=== PATIENT | female | born 1960 | race Caucasian/White ===

== ENCOUNTER 2018-09-28 13:48 | Inpatient (IN) ==
[2018-09-28] MEDS ORDERED: 0.9 % Sodium Chloride 1,000 ML IVC ONE (14:04)
--- NOTE | 2018-09-28 14:10 | Emergency Department Note ---
Disposition Clinical Impression: Pancreatitis, Renal stone Disposition: Admitted As Inpatient Condition: Good General Adult HPI - General Chief complaint: ED Abdominal Pain Stated complaint: abd pain-sent from Urology Time Seen by Provider: 09/28/18 13:53 Source: patient Limitations: no limitations - History of Present Illness Pain Scale: 5 - Related Data Home Medications Medication Instructions Recorded Confirmed RX: Aspirin 81 mg PO DAILY 06/12/18 09/29/18 RX: Ergocalciferol (VITAMIN D2) 2,000 unit PO DAILY 06/12/18 09/29/18 [Vitamin D2] RX: Escitalopram [Lexapro] 10 mg PO DAILY 06/12/18 09/29/18 RX: Esomeprazole Magnesium [Nexium] 20 mg PO DAILY 06/12/18 09/29/18 RX: Fenofibrate Nanocrystallized 160 mg PO DAILY 06/12/18 09/29/18 [Triglide] RX: Gabapentin [Neurontin] 800 mg PO HS 06/12/18 09/29/18 RX: Metformin HCl [Fortamet] 1,000 mg PO BID 06/12/18 09/29/18 RX: Metoprolol [Lopressor] 25 mg PO BID 06/12/18 09/29/18 RX: Tizanidine HCl [Zanaflex] 4 mg PO HS 06/12/18 09/29/18 RX: Topiramate 50 mg PO HS 06/12/18 09/29/18 RX: Tramadol HCl [Ultram] 50 mg PO HS PRN 06/12/18 09/29/18 Neurx-Tf 1 tab PO DAILY 09/29/18 09/29/18 Previous Rx's Medication Instructions Recorded Ciprofloxacin [Cipro] 500 mg PO BID 3 Days #6 tablet 09/29/18 Oxycodone HCl/Acetaminophen 1 each PO Q4-6H PRN 2 Days #10 09/29/18 [Percocet 5-325 mg Tablet] tablet RX: Oxybutynin [Ditropan] 5 mg PO TID PRN #20 tablet 09/29/18 Allergies Allergy/AdvReac Type Severity Reaction Status Date / Time Penicillins Allergy Hives Verified 09/29/18 10:39 Cortisone AdvReac Severe See Verified 09/29/18 10:39 Comments prednisone AdvReac See Verified 09/29/18 10:39 Comments Past Medical History - Past Medical History Medical history: Reports: coronary artery disease, diabetes, hyperlipidemia, hypertension, kidney stones, myocardial infarction Psychiatric history: Reports: anxiety, depression - Social History Smoking Status: Never smoker Smokeless Tobacco Status: No Alcohol use: Reports: none Drug use: Reports: none Physical Exam - General Limitations: no limitations General appearance: alert Course Vital Signs Temperature 98.6 F 09/28/18 13:55 Pulse Rate 73 09/28/18 13:55 Respiratory Rate 18 09/28/18 13:55 Blood Pressure 123/78 09/28/18 13:55 O2 Sat by Pulse Oximetry 98 09/28/18 13:55 Temperature 98.4 F 09/29/18 15:00 Pulse Rate 73 09/29/18 15:00 Respiratory Rate 16 09/29/18 15:00 Blood Pressure 153/71 09/29/18 15:00 O2 Sat by Pulse Oximetry 95 09/29/18 15:00 Oxygen Delivery Oxygen Delivery Room Air Medical Decision Making - Lab Data Result diagrams: 09/28/18 14:04 09/28/18 14:04 Lab Results 09/28/18 09/28/18 09/28/18 Range/Units 14:04 14:04 14:04 WBC 14.2 H (4.3-11.1) K/mcL RBC 3.41 L (3.82-4.97) M/mcL Hgb 10.2 L (11.5-15.4) g/dL Hct 31.3 L (35.3-44.9) % MCV 91.8 (83.0-100.0) fL MCH 29.9 (28.0-33.3) pg MCHC 32.6 (31.6-35.5) g/dL RDW 14.0 (11.5-14.5) % Plt Count 682 H (140-400) K/mcL MPV 10.0 (9.4-12.4) fL Immature Gran % 0.6 (0-4) % Seg Neutrophils % 69.0 % Lymphocytes % 18.6 % Monocytes % 10.0 % Eosinophils % 1.2 % Basophils % 0.6 % Neutrophils # 9.8 H (1.6-8.9) K/mcL Lymphocytes # 2.6 (0.6-4.6) K/mcL Monocytes # 1.4 H (0.0-1.3) K/mcL Eosinophils # 0.2 (0.0-0.6) K/mcL Basophils # 0.1 (0.0-0.2) K/mcL PT 13.5 H (9.4-12.1) Seconds INR 1.2 APTT 35.4 (26.0-36.0) Seconds Sodium 139 (136-145) mEq/L Potassium 3.5 (3.5-5.1) mEq/L Chloride 105 (98-107) mEq/L Carbon Dioxide 21 L (23-29) mEq/L BUN 12 (8-23) mg/dL Creatinine 1.03 (0.60-1.20) mg/dL Est GFR ( Amer) > 60 (> 60) Est GFR (Non-Af Amer) 55 L (> 60) BUN/Creatinine Ratio 12 (6-26) Glucose 191 H (70-105) mg/dL Calculated Osmolality 293 (280-300) Lactic Acid (0.5-2.2) mmol/L Calcium 11.2 H (8.6-10.3) mg/dL Total Bilirubin 0.6 (0.3-1.0) mg/dL Direct Bilirubin 0.1 (0.0-0.2) mg/dL Indirect Bilirubin 0.5 (0.0-1.2) mg/dL AST 17 (13-39) Units/L ALT 25 (7-52) Units/L Alkaline Phosphatase 47 (34-104) Units/L Troponin I < 0.03 (< 0.04) ng/mL Serum Total Protein 7.6 (6.4-8.9) g/dL Albumin 4.0 (3.5-5.7) g/dL Globulin 3.6 H (2.4-3.5) g/dL Albumin/Globulin Ratio 1.1 (1.1-2.2) Lipase 11 (11-82) Units/L 09/28/18 Range/Units 14:10 WBC (4.3-11.1) K/mcL RBC (3.82-4.97) M/mcL Hgb (11.5-15.4) g/dL Hct (35.3-44.9) % MCV (83.0-100.0) fL MCH (28.0-33.3) pg MCHC (31.6-35.5) g/dL RDW (11.5-14.5) % Plt Count (140-400) K/mcL MPV (9.4-12.4) fL Immature Gran % (0-4) % Seg Neutrophils % % Lymphocytes % % Monocytes % % Eosinophils % % Basophils % % Neutrophils # (1.6-8.9) K/mcL Lymphocytes # (0.6-4.6) K/mcL Monocytes # (0.0-1.3) K/mcL Eosinophils # (0.0-0.6) K/mcL Basophils # (0.0-0.2) K/mcL PT (9.4-12.1) Seconds INR APTT (26.0-36.0) Seconds Sodium (136-145) mEq/L Potassium (3.5-5.1) mEq/L Chloride (98-107) mEq/L Carbon Dioxide (23-29) mEq/L BUN (8-23) mg/dL Creatinine (0.60-1.20) mg/dL Est GFR ( Amer) (> 60) Est GFR (Non-Af Amer) (> 60) BUN/Creatinine Ratio (6-26) Glucose (70-105) mg/dL Calculated Osmolality (280-300) Lactic Acid 1.6 (0.5-2.2) mmol/L Calcium (8.6-10.3) mg/dL Total Bilirubin (0.3-1.0) mg/dL Direct Bilirubin (0.0-0.2) mg/dL Indirect Bilirubin (0.0-1.2) mg/dL AST (13-39) Units/L ALT (7-52) Units/L Alkaline Phosphatase (34-104) Units/L Troponin I (< 0.04) ng/mL Serum Total Protein (6.4-8.9) g/dL Albumin (3.5-5.7) g/dL Globulin (2.4-3.5) g/dL Albumin/Globulin Ratio (1.1-2.2) Lipase (11-82) Units/L Attestation Statement - Attestation Attestation: I examined this patient and my medical decision-making was reviewed with the Resident Physician. I agree with the documented findings, disposition and treatment plan as described except to the extent set forth below. [id number] time provided Patient with left flank pain sent from urology for ureterolithiasis. Patient appears mildly uncomfortable. She was evaluated in conjunction with the resident physician Dr. Damon
--- NOTE | 2018-09-28 14:51 | Emergency Department Note ---
Disposition Clinical Impression: Renal stone Pancreatitis Qualifiers: Chronicity: acute Pancreatitis type: unspecified pancreatitis type Acute pancreatitis complication: unspecified Qualified Code(s): K85.90 - Acute pa ncreatitis without necrosis or infection, unspecified Disposition: Admitted As Inpatient Condition: Good Referrals: Abiel Ragsdale DO [Primary Care Provider] - Forms: ED Satisfaction Letter, Work/School Release Time of Disposition: 15:03 General Adult HPI - General Chief complaint: ED Abdominal Pain Stated complaint: abd pain-sent from Urology Time Seen by Provider: 09/28/18 13:53 Source: patient Limitations: no limitations Nursing Notes Reviewed: Yes Vital Signs Reviewed: Yes - History of Present Illness HPI Narrative: Female patient presenting to emergency department being sent from our urology office for admission secondary to a large renal stone. Noted to be [address] She was subsequently also found to have pancreatitis. No history of pancreatitis or kidney stones previously. Patient complains of some nausea with left flank pain this been going on for around 2 weeks. Denies any dysuria. Denies any actual vomiting. Does report some diarrhea associated with this as well. She has had CABG as well as. Denies any chest pain or shortness of breath. Pain Scale: 5 - Related Data Home Medications Medication Instructions Recorded Confirmed Aspirin 81 mg PO DAILY 06/12/18 06/12/18 Ergocalciferol (VITAMIN D2) 2,000 unit PO DAILY 06/12/18 06/12/18 [Vitamin D2] Escitalopram [Lexapro] 10 mg PO DAILY 06/12/18 06/12/18 Esomeprazole Magnesium [Nexium] 20 mg PO DAILY 06/12/18 06/12/18 Fenofibrate Nanocrystallized 160 mg PO DAILY 06/12/18 06/12/18 [Triglide] Gabapentin [Neurontin] 1,600 mg PO HS 06/12/18 06/12/18 Gabapentin [Neurontin] 800 mg PO DAILY 06/12/18 06/12/18 Metformin HCl [Fortamet] 1,000 mg PO BID 06/12/18 06/12/18 Metoprolol [Lopressor] 25 mg PO BID 06/12/18 06/12/18 Pravastatin Sodium [Pravachol] 80 mg PO HS 06/12/18 06/12/18 Tizanidine HCl [Zanaflex] 4 mg PO HS 06/12/18 06/12/18 Topiramate 50 mg PO HS 06/12/18 06/12/18 Tramadol HCl [Ultram] 50 mg PO HS PRN 06/12/18 06/12/18 Previous Rx's Medication Instructions Recorded Tamsulosin HCl [Flomax] 0.4 mg PO DAILY #7 cap.er.24h 06/12/18 Allergies Allergy/AdvReac Type Severity Reaction Status Date / Time Cortisone Allergy See Verified 06/12/18 10:46 Comments Penicillins Allergy See Verified 06/12/18 10:46 Comments prednisone Allergy See Verified 06/12/18 10:46 Comments All systems ED: reviewed and negative except as stated. Review of Systems: As Per HPI Constitutional: Denies: fever ENT ED: Denies: congestion Cardiovascular: Denies: chest pain, palpitations, syncope Respiratory: Denies: cough, dyspnea Gastrointestinal: Reports: nausea, diarrhea. Denies: abdominal pain, vomiting, hematemesis, melena, hematochezia Genitourinary: Denies: urgency, dysuria, frequency, hematuria Musculoskeletal: Reports: back pain Integumentary: Denies: rash Past Medical History - Past Medical History Attestation: Yes The following information was validated with the patient. Source: patient Medical history: Reports: coronary artery disease, diabetes, hyperlipidemia, hypertension, kidney stones, myocardial infarction Psychiatric history: Reports: anxiety, depression - Social History Smoking Status: Never smoker Smokeless Tobacco Status: No Alcohol use: Reports: none Drug use: Reports: none Physical Exam - General Limitations: no limitations General appearance: alert, in no apparent distress - Head Head exam: atraumatic, normocephalic, normal inspection - Eye Eye exam: Present: normal appearance, PERRL, EOMI - ENT ENT exam: normal exam, normal oropharynx, mucous membranes moist - Neck Neck exam: Present: normal inspection, full ROM, trachea midline - Chest Chest inspection: Present: normal inspection, symmetric chest wall rise - Respiratory Respiratory exam: Present: normal lung sounds bilaterally. Absent: respiratory distress, accessory muscle use - Cardiovascular Cardiovascular exam: Present: regular rate, normal rhythm, normal heart sounds - Abdominal Exam Abdominal exam: Present: soft, Non-Tender. Absent: tenderness, distention, guarding, rebound, rigidity, organomegaly - Extremities Exam Extremities exam: Present: normal inspection, full ROM, normal capillary refill. Absent: tenderness, pedal edema - Back Exam Back exam: Present: CVA tenderness (L). Absent: CVA tenderness (R) - Neurological Exam Neurological exam: Present: alert, oriented X3 - Psychiatric Psychiatric exam: Present: normal affect, normal mood - Skin Skin exam: Present: warm, dry, intact, normal color Course Course Narrative: Female patient with left flank pain. States is been present for around 2 weeks also complaining of nausea but no vomiting. Does report intermittent diarrhea however. She is a diabetic with hypercholesterol. No history of renal stones or pancreatitis before. She is refusing any type of pain medication or antibiotic at this time. We will admit patient to the hospital for renal stone that is not able to be passed as well as her pancreatitis. Patient's lipase is not elevated. We did speak with urology. We will admit patient to the hospital at this time. - Consultations Consultation #1: Dr. Fiore except patient stable condition Time: 15:42 Vital Signs Temperature 98.6 F 09/28/18 13:55 Pulse Rate 73 09/28/18 13:55 Respiratory Rate 18 09/28/18 13:55 Blood Pressure 123/78 09/28/18 13:55 O2 Sat by Pulse Oximetry 98 09/28/18 13:55 Temperature 98.6 F 09/28/18 13:55 Pulse Rate 70 09/28/18 14:08 Respiratory Rate 13 09/28/18 14:08 Blood Pressure 132/64 09/28/18 14:08 O2 Sat by Pulse Oximetry 98 09/28/18 14:08 Oxygen Delivery Oxygen Delivery Room Air Medical Decision Making - Medical Records Medical records reviewed: Yes I reviewed the patient's medical records. - Lab Data Lab results reviewed: Yes I reviewed the patient's lab results. Result diagrams: 09/28/18 14:04 09/28/18 14:04 Lab Results 09/28/18 09/28/18 09/28/18 Range/Units 14:04 14:04 14:04 WBC 14.2 H (4.3-11.1) K/mcL RBC 3.41 L (3.82-4.97) M/mcL Hgb 10.2 L (11.5-15.4) g/dL Hct 31.3 L (35.3-44.9) % MCV 91.8 (83.0-100.0) fL MCH 29.9 (28.0-33.3) pg MCHC 32.6 (31.6-35.5) g/dL RDW 14.0 (11.5-14.5) % Plt Count 682 H (140-400) K/mcL MPV 10.0 (9.4-12.4) fL Immature Gran % 0.6 (0-4) % Seg Neutrophils % 69.0 % Lymphocytes % 18.6 % Monocytes % 10.0 % Eosinophils % 1.2 % Basophils % 0.6 % Neutrophils # 9.8 H (1.6-8.9) K/mcL Lymphocytes # 2.6 (0.6-4.6) K/mcL Monocytes # 1.4 H (0.0-1.3) K/mcL Eosinophils # 0.2 (0.0-0.6) K/mcL Basophils # 0.1 (0.0-0.2) K/mcL PT 13.5 H (9.4-12.1) Seconds INR 1.2 APTT 35.4 (26.0-36.0) Seconds Sodium 139 (136-145) mEq/L Potassium 3.5 (3.5-5.1) mEq/L Chloride 105 (98-107) mEq/L Carbon Dioxide 21 L (23-29) mEq/L BUN 12 (8-23) mg/dL Creatinine 1.03 (0.60-1.20) mg/dL Est GFR ( Amer) > 60 (> 60) Est GFR (Non-Af Amer) 55 L (> 60) BUN/Creatinine Ratio 12 (6-26) Glucose 191 H (70-105) mg/dL Calculated Osmolality 293 (280-300) Lactic Acid (0.5-2.2) mmol/L Calcium 11.2 H (8.6-10.3) mg/dL Total Bilirubin 0.6 (0.3-1.0) mg/dL Direct Bilirubin 0.1 (0.0-0.2) mg/dL Indirect Bilirubin 0.5 (0.0-1.2) mg/dL AST 17 (13-39) Units/L ALT 25 (7-52) Units/L Alkaline Phosphatase 47 (34-104) Units/L Troponin I < 0.03 (< 0.04) ng/mL Serum Total Protein 7.6 (6.4-8.9) g/dL Albumin 4.0 (3.5-5.7) g/dL Globulin 3.6 H (2.4-3.5) g/dL Albumin/Globulin Ratio 1.1 (1.1-2.2) Lipase 11 (11-82) Units/L // Range/Units 14:10 WBC (4.3-11.1) K/mcL RBC (3.82-4.97) M/mcL Hgb (11.5-15.4) g/dL Hct (35.3-44.9) % MCV (83.0-100.0) fL MCH (28.0-33.3) pg MCHC (31.6-35.5) g/dL RDW (11.5-14.5) % Plt Count (140-400) K/mcL MPV (9.4-12.4) fL Immature Gran % (0-4) % Seg Neutrophils % % Lymphocytes % % Monocytes % % Eosinophils % % Basophils % % Neutrophils # (1.6-8.9) K/mcL Lymphocytes # (0.6-4.6) K/mcL Monocytes # (0.0-1.3) K/mcL Eosinophils # (0.0-0.6) K/mcL Basophils # (0.0-0.2) K/mcL PT (9.4-12.1) Seconds INR APTT (26.0-36.0) Seconds Sodium (136-145) mEq/L Potassium (3.5-5.1) mEq/L Chloride (98-107) mEq/L Carbon Dioxide (23-29) mEq/L BUN (8-23) mg/dL Creatinine (0.60-1.20) mg/dL Est GFR ( Amer) (> 60) Est GFR (Non-Af Amer) (> 60) BUN/Creatinine Ratio (6-26) Glucose (70-105) mg/dL Calculated Osmolality (280-300) Lactic Acid 1.6 (0.5-2.2) mmol/L Calcium (8.6-10.3) mg/dL Total Bilirubin (0.3-1.0) mg/dL Direct Bilirubin (0.0-0.2) mg/dL Indirect Bilirubin (0.0-1.2) mg/dL AST (13-39) Units/L ALT (7-52) Units/L Alkaline Phosphatase (34-104) Units/L Troponin I (< 0.04) ng/mL Serum Total Protein (6.4-8.9) g/dL Albumin (3.5-5.7) g/dL Globulin (2.4-3.5) g/dL Albumin/Globulin Ratio (1.1-2.2) Lipase (11-82) Units/L
[2018-09-28 14:53] LABS: Basophils # 0.1 K/mcL (0.0-0.2); Basophils % 0.6 %; Eosinophils # 0.2 K/mcL (0.0-0.6); Eosinophils % 1.2 %; Hematocrit 31.3 % (35.3-44.9); Hemoglobin 10.2 g/dL (11.5-15.4); Immature Granulocytes % 0.6 % (0-4); Lymphocytes # 2.6 K/mcL (0.6-4.6); Lymphocytes % 18.6 %; Mean Corpuscular HGB Conc 32.6 g/dL (31.6-35.5); Mean Corpuscular Hemoglobin 29.9 pg (28.0-33.3); Mean Corpuscular Volume 91.8 fL (83.0-100.0); Monocytes # 1.4 K/mcL (0.0-1.3); Neutrophils # 9.8 K/mcL (1.6-8.9); Platelet Count 682 K/mcL (140-400); Red Blood Count 3.41 M/mcL (3.82-4.97)
[2018-09-28 15:03] LABS: Troponin I < 0.03 ng/mL (< 0.04)
[2018-09-28 15:08] LABS: INR 1.2; Prothrombin Time 13.5 Seconds (9.4-12.1)
[2018-09-28 15:11] LABS: Activated Partial Thrombo Time 35.4 Seconds (26.0-36.0)
[2018-09-28 15:17] LABS: Alanine Aminotransferase 25 Units/L (7-52); Albumin/Globulin Ratio 1.1 (1.1-2.2); Alkaline Phosphatase 47 Units/L (34-104); Aspartate Amino Transferase 17 Units/L (13-39); BUN/Creatinine Ratio 12 (6-26); Bilirubin,Direct 0.1 mg/dL (0.0-0.2); Bilirubin,Indirect 0.5 mg/dL (0.0-1.2); Bilirubin,Total 0.6 mg/dL (0.3-1.0); Blood Urea Nitrogen 12 mg/dL (8-23); Calcium 11.2 mg/dL (8.6-10.3); Carbon Dioxide 21 mEq/L (23-29); Chloride 105 mEq/L (98-107); Globulin 3.6 g/dL (2.4-3.5); Glucose 191 mg/dL (70-105); Lipase 11 Units/L (11-82); Osmolality,Calculated 293 (280-300); Potassium 3.5 mEq/L (3.5-5.1); Sodium 139 mEq/L (136-145); Total Protein 7.6 g/dL (6.4-8.9); eGFR For Non-African Americans 55 (> 60)
--- NOTE | 2018-09-28 17:01 | Urology - Consult Note ---
Date of Encounter: 09/29/18 Time of Encounter: 16:58 - Assessment and Plan (1) Hydronephrosis Current Visit: Yes Status: Acute Assessment and plan: Secondary to a 12 mm left UPJ stone. Plan: Please make patient nothing by mouth after midnight. Anticipate urinary diversion with left double-J ureteral stent placement under anesthesia late tomorrow morning. Qualifiers: Hydronephrosis type: with renal calculous obstruction Qualified Code(s): N13.2 - Hydronephrosis with renal and ureteral calculous obstruction (2) Renal stone Current Visit: Yes Status: Acute Assessment and plan: In addition to be obstructing 5 mm stone the patient has at the left UPJ there are additional small stones in the lower pole the left kidney and a fairly sizable stone in the right kidney. Plan: Nothing by mouth after midnight. Urinary diversion with stent placement tomorrow on an urgent basis. Follow-up for definitive stone management with my partner Dr. Mcdaniels who is her established urologist Urology CN:[facility] Consult date: 09/28/18 Reason for consult Urology: Hydronephrosis History of present illness: 58-year-old lady well known to our service. She is a patient of my partner Dr. Mcdainels. The patient underwent a recent left lithotripsy which failed to eradicate her left renal pelvic stone. She was recommended ureteroscopy with laser lithotripsy, but elected to not schedule this definitive procedure. She now presents the emergency department with an obstructing 12 mm stone in the l eft UPJ with hydronephrosis and significant pain. I discussed the case in detail with the emergency department attending. I recommended admission to medicine with a formal consult to our service. I have reviewed her CT images. I have discussed the details of her previous treatment with Dr. Mcdaniels. I have reserved or time for urinary diversion tomorrow morning.. Past Med Surg Social Fam HX - Past Medical History Medical history: coronary artery disease, diabetes, hyperlipidemia, hypertension, kidney stones, myocardial infarction Psychiatric history: anxiety, depression - Past Surgical History Additional surgical history: Left ESWL - Social History Smoking Status: Never smoker Smokeless Tobacco Status: No Alcohol use: none Drug use: none - Family History Father Hx Family Cardiac Disorders: Yes (Heart Dx, HTN) Hx Family Respiratory Disorders: Yes (COPD) Hx Family Endocrine Disorder: Yes (DM) Mother Hx Family Cardiac Disorders: Yes (HTN) Medications and Allergies RX: Aspirin 81 mg PO DAILY 06/12/18 [History] RX: Ergocalciferol (VITAMIN D2) [Vitamin D2] 2,000 unit PO DAILY 06/12/18 [History] RX: Escitalopram [Lexapro] 10 mg PO DAILY 06/12/18 [History] RX: Esomeprazole Magnesium [Nexium] 20 mg PO DAILY 06/12/18 [History] RX: Fenofibrate Nanocrystallized [Triglide] 160 mg PO DAILY 06/12/18 [History] RX: Gabapentin [Neurontin] 800 mg PO HS 06/12/18 [History] RX: Metformin HCl [Fortamet] 1,000 mg PO BID 06/12/18 [History] RX: Metoprolol [Lopressor] 25 mg PO BID 06/12/18 [History] RX: Tizanidine HCl [Zanaflex] 4 mg PO HS 06/12/18 [History] RX: Topiramate 50 mg PO HS 06/12/18 [History] RX: Tramadol HCl [Ultram] 50 mg PO HS PRN 06/12/18 [History] Neurx-Tf 1 tab PO DAILY 09/29/18 [History] Allergy/AdvReac Type Severity Reaction Status Date / Time Penicillins Allergy Hives Verified 09/29/18 10:39 Cortisone AdvReac Severe See Verified 09/29/18 10:39 Comments prednisone AdvReac See Verified 09/29/18 10:39 Comments Review of Systems - Constitutional no chills, no fever(s) - EENT Nose, mouth and throat: no dizziness, no headache(s) - Cardiovascular no chest pain, no diaphoresis - Respiratory no cough, no dyspnea - Gastrointestinal abdominal pain, nausea, no fecal incontinence - Genitourinary Genitourinary: flank pain, no dysuria - Musculoskeletal back pain, no muscle weakness, no numbness - Integumentary no lesions, no rash, no swelling - Neurological no confusion, no sensory deficit - Psychiatric no anxiety, no confusion - Hematologic/Lymphatic no easy bleeding - Allergic/Immunologic no throat swelling, no wheezing Exam Initial Vital Signs Temp Pulse Resp BP Pulse Ox 98.6 F 73 18 123/78 98 09/28/18 13:55 09/28/18 13:55 09/28/18 13:55 09/28/18 13:55 09/28/18 13:55 - General physical appearance Present: well developed, well nourished - Eyes Present: normal ocular movement - ENT Present: normal mucosa, no hearing loss - Neck Present: trachea midline - Respiratory Present: normal respiratory effort - Abdomen Abdomen: Present: soft, non tender. Absent: distended - Integumentary Present: no rash, no growths, no abnormal pigmentation - Neurologic Present: normal coordination - Musculoskeletal Present: normal gait Urology Results - Labs 09/28/18 14:04 09/28/18 14:04 Abnormal lab results WBC 14.2 K/mcL (4.3-11.1) H 09/28/18 14:04 RBC 3.41 M/mcL (3.82-4.97) L 09/28/18 14:04 Hgb 10.2 g/dL (11.5-15.4) L 09/28/18 14:04 Hct 31.3 % (35.3-44.9) L 09/28/18 14:04 Plt Count 682 K/mcL (140-400) H 09/28/18 14:04 Neutrophils # 9.8 K/mcL (1.6-8.9) H 09/28/18 14:04 Monocytes # 1.4 K/mcL (0.0-1.3) H 09/28/18 14:04 PT 13.5 Seconds (9.4-12.1) H 09/28/18 14:04 Carbon Dioxide 21 mEq/L (23-29) L 09/28/18 14:04 Est GFR (Non-Af Amer) 55 (> 60) L 09/28/18 14:04 Glucose 191 mg/dL (70-105) H 09/28/18 14:04 Calcium 11.2 mg/dL (8.6-10.3) H 09/28/18 14:04 Globulin 3.6 g/dL (2.4-3.5) H 09/28/18 14:04 Diabetes panel 09/28/18 Range/Units 14:04 Sodium 139 (136-145) mEq/L Potassium 3.5 (3.5-5.1) mEq/L Chloride 105 (98-107) mEq/L Carbon Dioxide 21 L (23-29) mEq/L BUN 12 (8-23) mg/dL Creatinine 1.03 (0.60-1.20) mg/dL Glucose 191 H (70-105) mg/dL Calcium 11.2 H (8.6-10.3) mg/dL AST 17 (13-39) Units/L ALT 25 (7-52) Units/L Alkaline Phosphatase 47 (34-104) Units/L Albumin 4.0 (3.5-5.7) g/dL Calcium panel 09/28/18 Range/Units 14:04 Calcium 11.2 H (8.6-10.3) mg/dL Albumin 4.0 (3.5-5.7) g/dL Pituitary panel 09/28/18 Range/Units 14:04 Sodium 139 (136-145) mEq/L Potassium 3.5 (3.5-5.1) mEq/L Chloride 105 (98-107) mEq/L Carbon Dioxide 21 L (23-29) mEq/L BUN 12 (8-23) mg/dL Creatinine 1.03 (0.60-1.20) mg/dL Glucose 191 H (70-105) mg/dL Calcium 11.2 H (8.6-10.3) mg/dL Adrenal panel 09/28/18 Range/Units 14:04 Sodium 139 (136-145) mEq/L Potassium 3.5 (3.5-5.1) mEq/L Chloride 105 (98-107) mEq/L Carbon Dioxide 21 L (23-29) mEq/L BUN 12 (8-23) mg/dL Creatinine 1.03 (0.60-1.20) mg/dL Glucose 191 H (70-105) mg/dL Calcium 11.2 H (8.6-10.3) mg/dL Total Bilirubin 0.6 (0.3-1.0) mg/dL AST 17 (13-39) Units/L ALT 25 (7-52) Units/L Alkaline Phosphatase 47 (34-104) Units/L Albumin 4.0 (3.5-5.7) g/dL All other labs normal. - Imaging CT scan - abdomen: image reviewed CT scan - pelvis: image reviewed (CT images reviewed and interpreted independently) Consult Discharge Plan - Plan Referrals: Abiel Ragsdale DO [Primary Care Provider] -
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
[2018-09-28] MEDS ORDERED: *HR* Dextrose 50 % in Water (Syg) 50 ML SYRINGE IVP PRN (18:49)
[2018-09-28] MEDS ORDERED: Dextrose Gel 15 GM/37.5 ML TUBE PO PRN ×2 (18:49)
[2018-09-28] MEDS ORDERED: D5% in Water 1,000 ML IVC PRN (18:49)
[2018-09-28] MEDS ORDERED: Naloxone 0.4 MG/ML INJ IVP PRN (18:52)
[2018-09-28] MEDS ORDERED: *HR* OxyCODONE Immed Rel 5 MG TABLET PO PRN ×2 (18:56→18:58)
[2018-09-28] MEDS ORDERED: Ondansetron 4 MG/2 ML VIAL IVP PRN (18:59)
[2018-09-28 19:32] LABS: Estimated Average Glucose 163 mg/dl; Hemoglobin A1C 7.3 %
[2018-09-28] MEDS: 0.9 % Sodium Chloride 1,000 ML IVC SCH (20:11)
[2018-09-28] MEDS: Insulin LISPRO 300 UNITS/3 ML VIAL SQ SCH (21:00)
[2018-09-28] MEDS ORDERED: Insulin LISPRO 300 UNITS/3 ML VIAL SQ SCH (21:00)
[2018-09-29] MEDS: Insulin LISPRO 300 UNITS/3 ML VIAL SQ SCH ×4 (04:56→11:30)
--- NOTE | 2018-09-29 09:16 | Anesthesia Evaluation PreOp ---
Date of Encounter: 09/29/18 Time of Encounter: 09:14 - Past History Planned Operation: Cystoscopy, Bilateral Stent Insertion Cardiac History: CO, HTN, Hyperlipidemia, Cardiac Surgery (CABG x 4 2005), Other (CAD) Pulmonary History: Denies Any Significant HX FRONT DESK PERSON History: Denies Any Significant HX Other Medical History: Renal (stones), Diabetes Type II Anesthesia History: No Prior Anesthetic Complications, Past Anesthesia ([facility]) : No Alcohol Use: none Drug use: none Medications and Allergies Aspirin 81 mg PO DAILY 06/12/18 [History] Ergocalciferol (VITAMIN D2) [Vitamin D2] 2,000 unit PO DAILY 06/12/18 [History] Escitalopram [Lexapro] 10 mg PO DAILY 06/12/18 [History] Esomeprazole Magnesium [Nexium] 20 mg PO DAILY 06/12/18 [History] Fenofibrate Nanocrystallized [Triglide] 160 mg PO DAILY 06/12/18 [History] Gabapentin [Neurontin] 800 mg PO HS 06/12/18 [History] Metformin HCl [Fortamet] 1,000 mg PO BID 06/12/18 [History] Metoprolol [Lopressor] 25 mg PO BID 06/12/18 [History] Tizanidine HCl [Zanaflex] 4 mg PO HS 06/12/18 [History] Topiramate 50 mg PO HS 06/12/18 [History] Tramadol HCl [Ultram] 50 mg PO HS PRN 06/12/18 [History] Neurx-Tf 1 tab PO DAILY 09/29/18 [History] Allergy/AdvReac Type Severity Reaction Status Date / Time Penicillins Allergy Hives Verified 09/29/18 10:39 Cortisone AdvReac Severe See Verified 09/29/18 10:39 Comments prednisone AdvReac See Verified 09/29/18 10:39 Comments - Meds/Allergy Pre-op Review Medications Reviewed: Yes Allergies Reviewed: Yes Beta Blockers on Current Med List: Yes (Will give IV pre-op) Anesthesia Results - Labs 09/28/18 14:04 09/28/18 14:04 Anesthesia Exam O2 Sat Height 1.7 m Height 1.7 m Weight 83.4 kg Weight 83.7 kg Weight 79.832 kg O2 Sat by Pulse Oximetry 97 O2 Sat by Pulse Oximetry 96 O2 Sat by Pulse Oximetry 98 O2 Sat by Pulse Oximetry 97 O2 Sat by Pulse Oximetry 98 O2 Sat by Pulse Oximetry 98 O2 Sat by Pulse Oximetry 98 Vital Signs Temp Pulse Resp BP Pulse Ox 98.6 F 73 18 123/78 98 09/28/18 13:55 09/28/18 13:55 09/28/18 13:55 09/28/18 13:55 09/28/18 13:55 Vital Signs/O2 Sat, Most Current Temp Pulse Resp BP Pulse Ox 98.9 F 74 18 145/72 97 09/29/18 07:20 09/29/18 07:20 09/29/18 07:20 09/29/18 07:20 09/29/18 07:20 NPO (# of Hours): > 8 hrs Pain Scale: 0 Pain Scale Used: Numeric (1 - 10) - HEENT Pupil (Motor): Pupils equal, EOMI Mallampati: II Teeth: Normal Oral Opening: Greater than 3 - FRONT DESK PERSON LOC: Oriented FRONT DESK PERSON Motor: Normal RUE, Normal LUE, Normal RLE, Normal LLE, Normal Face FRONT DESK PERSON Sensory: Normal: RUE, LUE, RLE, LLE, Face - Cardiac Rhythm: Regular Murmur: None JVD: No Carotid Bruit: No - Pulmonary Breath Sounds: bilateral Clear Respiratory Effort: Symmetrical Anesthesia Assess/Plan ASA Score: 2 Level of consciousness: Cooperative Anesthetic Plan: General Autologous Blood: Yes Monitoring Plan: Standard Monitors Recovery Plan: PACU
[2018-09-29] MEDS ORDERED: *HR* Labetalol 20 MG/4 ML SYRINGE IVP PRN ×2 (09:25→12:55)
[2018-09-29] MEDS ORDERED: Ondansetron 4 MG/2 ML VIAL IVP ONE (09:25)
[2018-09-29] MEDS ORDERED: *HR* OxyCODONE Immed Rel 5 MG TABLET PO PRN ×4 (09:25→12:55)
[2018-09-29] MEDS ORDERED: *HR* Promethazine 25 MG/ML VIAL IVP PRN ×2 (09:25→12:55)
[2018-09-29] MEDS ORDERED: *HR* HYDROmorphone (PF) 1 MG/ML SYRINGE IVP PRN ×2 (09:25→12:55)
[2018-09-29] MEDS: 0.9 % Sodium Chloride 1,000 ML IVC SCH (09:30)
[2018-09-29] MEDS ORDERED: *HR* Propofol 200 MG/20 ML VIAL IVP ONE (10:19)
[2018-09-29] MEDS ORDERED: *HR* FentaNYL (PF) 100 MCG/2 ML VIAL ONE (10:20)
[2018-09-29] MEDS ORDERED: Lidocaine -MPF 2% 2 ML VIAL ONE (10:20)
[2018-09-29] MEDS ORDERED: Ondansetron 4 MG/2 ML VIAL ONE (10:20)
[2018-09-29] MEDS ORDERED: *HR* Midazolam HCl 2 MG/2 ML VIAL ONE (10:20)
[2018-09-29] MEDS ORDERED: Dexamethasone 4 MG/ML VIAL ONE (10:20)
[2018-09-29] MEDS ORDERED: Isovue-300 50 ML VIAL ONE (11:59)
--- NOTE | 2018-09-29 12:29 | Operative Note ---
Date of procedure: 09/29/18 Pre-op diagnosis: Left renal calculus Post-op diagnosis: same Procedure: Cystoscopy, left retrograde ureteropyelogram with intraoperative interpretation of radial graphic images in real time by surgeon to facilitate procedure, left double-J stent placement Implants: 6 x 26 left double-J stent Complications: None Anesthesia: GETA Surgeon: Dwaine Austin Was there an events administrative assistant present: No Estimated blood loss (cc): 0 Specimen: none Condition: stable Disposition: PACU Procedure in Detail: The patient brought the operating theater placed on table in supine position. Patient identified by name and administered a general anesthetic. The patient was placed in dorsal lithotomy prepped and draped in a normal sterile fashion. A cystoscope was inserted to the urethral meatus and advanced with bladder under direct visualization. There were no mucosal abnormalities of bladder or urethra. An open-ended catheter was placed the tip of the left ureteral orifice. With gentle injection of contrast a left retrograde ureteral Polygram was performed. Intraoperative interpretation of radial graphic images in real time by surgeon revealed mild dilation of the distal mid and proximal ureter without filling defect until the level of the UPJ where a large high-grade obstruction was noted. Minimal contrast past the obstructing stone. Based on this finding urinary diversion was indicated. Under fluoroscopic guidance a Glidewire was advanced around the stone and into the left renal pelvis. Over the Glidewire a 6 x 26 double J stent was advanced. Was sent was a to be in good position fluoroscopically, the Glidewire was removed. Proximal distal ends of the stent were confirmed in good position fluoroscopically. This ended the operative procedure
--- NOTE | 2018-09-29 12:37 | Urology Progress Note ---
Date of Encounter: 09/29/18 Time of Encounter: 12:36 - Assessment and Plan (1) Hydronephrosis Current Visit: Yes Status: Acute Qualifiers: Hydronephrosis type: with renal calculous obstruction Qualified Code(s): N13.2 - Hydronephrosis with renal and ureteral calculous obstruction (2) Renal stone Current Visit: Yes Status: Acute Assessment and plan: Uncomplicated urinary diversion via left ureteral stent placement in OR. Okay for discharge from urology standpoint. Scripts for ciprofloxacin and oxybutynin sent to pharmacy electronically. Prescription for Percocet printed and placed in patient chart. Thank you for your assistance and medical management of this patient. Objective Initial Vital Signs Temp Pulse Resp BP Pulse Ox 98.6 F 73 18 123/78 98 09/28/18 13:55 09/28/18 13:55 09/28/18 13:55 09/28/18 13:55 09/28/18 13:55 - Labs 09/28/18 14:04 09/28/18 14:04 Diabetes panel 09/28/18 09/28/18 Range/Units 14:04 19:19 Sodium 139 (136-145) mEq/L Potassium 3.5 (3.5-5.1) mEq/L Chloride 105 (98-107) mEq/L Carbon Dioxide 21 L (23-29) mEq/L BUN 12 (8-23) mg/dL Creatinine 1.03 (0.60-1.20) mg/dL Glucose 191 H (70-105) mg/dL Hemoglobin A1c 7.3 H ( - 5.6) % Calcium 11.2 H (8.6-10.3) mg/dL AST 17 (13-39) Units/L ALT 25 (7-52) Units/L Alkaline Phosphatase 47 (34-104) Units/L Albumin 4.0 (3.5-5.7) g/dL Calcium panel 09/28/18 Range/Units 14:04 Calcium 11.2 H (8.6-10.3) mg/dL Albumin 4.0 (3.5-5.7) g/dL Pituitary panel 09/28/18 Range/Units 14:04 Sodium 139 (136-145) mEq/L Potassium 3.5 (3.5-5.1) mEq/L Chloride 105 (98-107) mEq/L Carbon Dioxide 21 L (23-29) mEq/L BUN 12 (8-23) mg/dL Creatinine 1.03 (0.60-1.20) mg/dL Glucose 191 H (70-105) mg/dL Calcium 11.2 H (8.6-10.3) mg/dL Adrenal panel 09/28/18 Range/Units 14:04 Sodium 139 (136-145) mEq/L Potassium 3.5 (3.5-5.1) mEq/L Chloride 105 (98-107) mEq/L Carbon Dioxide 21 L (23-29) mEq/L BUN 12 (8-23) mg/dL Creatinine 1.03 (0.60-1.20) mg/dL Glucose 191 H (70-105) mg/dL Calcium 11.2 H (8.6-10.3) mg/dL Total Bilirubin 0.6 (0.3-1.0) mg/dL AST 17 (13-39) Units/L ALT 25 (7-52) Units/L Alkaline Phosphatase 47 (34-104) Units/L Albumin 4.0 (3.5-5.7) g/dL Consult Discharge Plan - Plan Referrals: Abiel Ragsdale DO [Primary Care Provider] - Prescriptions: Ciprofloxacin [Cipro] 500 mg PO BID 3 Days #6 tablet Oxybutynin [Ditropan] 5 mg PO TID PRN #20 tablet PRN Reason: Bladder/stent irritation Oxycodone HCl/Acetaminophen [Percocet 5-325 mg Tablet] 1 each PO Q4-6H PRN 2 Days #10 tablet PRN Reason: pain
[2018-09-29] MEDS ORDERED: Naloxone 0.4 MG/ML INJ IVP PRN (12:55)
[2018-09-29] MEDS ORDERED: *HR* Dextrose 50 % in Water (Syg) 50 ML SYRINGE IVP PRN (12:55)
[2018-09-29] MEDS ORDERED: D5% in Water 1,000 ML IVC PRN (12:55)
[2018-09-29] MEDS ORDERED: 0.9 % Sodium Chloride 1,000 ML IVC SCH (12:55)
[2018-09-29] MEDS ORDERED: Ondansetron 4 MG/2 ML VIAL IVP PRN (12:55)
[2018-09-29] MEDS ORDERED: Dextrose Gel 15 GM/37.5 ML TUBE PO PRN ×2 (12:55)
[2018-09-29 15:01] VITALS: BP 153/71
--- NOTE | 2018-09-29 15:26 | Anesthesia Evaluation Post Op ---
Date of Encounter: 09/29/18 Time of Encounter: 15:25 - Vital Signs Vital Signs: Vital Signs/O2 Sat, Most Current Temp Pulse Resp BP Pulse Ox 98.4 F 73 16 153/71 95 09/29/18 15:00 09/29/18 15:00 09/29/18 15:00 09/29/18 15:00 09/29/18 15:00 - Lungs Lungs: Clear Ascult./Percussion - Airway Airway: Non-obstructed - Cardiovascular Regular Rate - Pain Pain Scale: 0 Pain Scale used: Numeric (1 - 10) - Nausea Vomiting Nausea Vomiting: Not Present - Hydration Hydration: NPO, Has not voided - Discharge PostOp Status: Transfer Patient to floor
[2018-09-29] MEDS ORDERED: Insulin LISPRO 300 UNITS/3 ML VIAL SQ SCH ×3 (16:30→21:00)
--- NOTE | 2018-09-29 16:44 | Discharge Summary ---
Orders not resulted at time of discharge: Pending orders 09/28/18 16:21 Urinalysis Reflex Cult & Micro [URIN] Stat Date of Encounter: 09/29/18 Time of Encounter: 16:39 - Discharge Diagnosis (1) Hydronephrosis with ureteral calculus Priority: Primary Status: Acute (2) Abnormal CT of the abdomen Priority: Secondary Status: Chronic (3) CAD (coronary artery disease) Priority: Secondary Status: Chronic Qualifiers: Coronary Disease-Associated Artery/Lesion type: unspecified vessel or lesion type [place] vs. transplanted heart: [place] heart Associated angina: without angina Qualified Code(s): I25.10 - Atherosclerotic heart disease of [place] coronary artery without angina pectoris (4) T2DM (type 2 diabetes mellitus) Priority: Secondary Status: Chronic Qualifiers: Diabetes mellitus group home insulin use: without long term care pharmacist use Diabetes mellitus complication status: without complication Qualified Code(s): E11.9 - Type 2 diabetes mellitus without complications Hospital course: Ms. Will is a 58 year old female Discharge discussed with: patient, nurse - Time Spent with Patient Total time spent providing and/or coordinating discharge services: Time spent: Less than 30 minutes - Discharge Medications Prescriptions: New Ciprofloxacin [Cipro] 500 mg PO BID 3 Days #6 tablet Oxybutynin [Ditropan] 5 mg PO TID PRN #20 tablet PRN Reason: Bladder/stent irritation Oxycodone HCl/Acetaminophen [Percocet 5-325 mg Tablet] 1 each PO Q4-6H PRN 2 Days #10 tablet PRN Reason: pain Continue Aspirin 81 mg PO DAILY Ergocalciferol (VITAMIN D2) [Vitamin D2] 2,000 unit PO DAILY Escitalopram [Lexapro] 10 mg PO DAILY Esomeprazole Magnesium [Nexium] 20 mg PO DAILY Fenofibrate Nanocrystallized [Triglide] 160 mg PO DAILY Gabapentin [Neurontin] 800 mg PO HS Metformin HCl [Fortamet] 1,000 mg PO BID Metoprolol [Lopressor] 25 mg PO BID Tizanidine HCl [Zanaflex] 4 mg PO HS Topiramate 50 mg PO HS Tramadol HCl [Ultram] 50 mg PO HS PRN PRN Reason: Pain Neurx-Tf 1 tab PO DAILY Home Medications: Aspirin 81 mg PO DAILY 06/12/18 [History] Ergocalciferol (VITAMIN D2) [Vitamin D2] 2,000 unit PO DAILY 06/12/18 [History] Escitalopram [Lexapro] 10 mg PO DAILY 06/12/18 [History] Esomeprazole Magnesium [Nexium] 20 mg PO DAILY 06/12/18 [History] Fenofibrate Nanocrystallized [Triglide] 160 mg PO DAILY 06/12/18 [History] Gabapentin [Neurontin] 800 mg PO HS 06/12/18 [History] Metformin HCl [Fortamet] 1,000 mg PO BID 06/12/18 [History] Metoprolol [Lopressor] 25 mg PO BID 06/12/18 [History] Tizanidine HCl [Zanaflex] 4 mg PO HS 06/12/18 [History] Topiramate 50 mg PO HS 06/12/18 [History] Tramadol HCl [Ultram] 50 mg PO HS PRN 06/12/18 [History] Ciprofloxacin [Cipro] 500 mg PO BID 3 Days #6 tablet 09/29/18 [Rx] Neurx-Tf 1 tab PO DAILY 09/29/18 [History] Oxybutynin [Ditropan] 5 mg PO TID PRN #20 tablet 09/29/18 [Rx] Oxycodone HCl/Acetaminophen [Percocet 5-325 mg Tablet] 1 each PO Q4-6H PRN 2 Days #10 tablet 09/29/18 [Rx] Allergies/Adverse Reactions: Allergy/AdvReac Type Severity Reaction Status Date / Time Penicillins Allergy Hives Verified 09/29/18 10:39 Cortisone AdvReac Severe See Verified 09/29/18 10:39 Comments prednisone AdvReac See Verified 09/29/18 10:39 Comments Date of admission: 09/28/18 18:52 Primary care physician: Abiel Ragsdale DO Consults: 09/28/18 15:32 Consult to Urology [CONS] Stat Consulting Provider: [facility] Reason for Consult: ureterolithiasis Time Notified: 15:32 Call Completed: Yes 09/28/18 18:22 Consult to Nutrition [CONS] Routine Comment: Consulting Provider: NUTRITION Reason for Dietary Consult: MST Score Consult to Pastoral Services [CONS] Routine Comment: Discharging clinician: Eamon Gutiérrez Anticipated date of discharge: 09/29/18 - Constitutional Vitals: Temp Pulse Resp BP Pulse Ox 98.4 F 73 16 153/71 95 09/29/18 15:00 09/29/18 15:00 09/29/18 15:00 09/29/18 15:00 09/29/18 15:00 General appearance: Present: A&O X 3, no acute distress, answers questions appropriately - Patient Status Disposition: Home, Self-Care Condition: Good Overall status at discharge: patient is progressing back to baseline - Discharge Instructions Follow Up With: Abiel Ragsdale DO [Primary Care Provider] - Additional Instructions: F-UP WITH DR. FRANKLIN, UROLOGY -- IN 1-2 WEEKS... - Diet and Activity Activity: increase activity as tolerated Diet: diabetic diet - VTE Reasons for not Prescribing Prophylaxis: Treatment not Indicated - Low risk for VTE Deep Vein Thrombosis/Pulmonary Embolism Present on Admission: No
== END 2018-09-29 18:40 | disposition home or self-care (01) | DRG 661 ==
LOC: 3ANU 13:48 → EMEROOARM 13:48 → 3ANU 17:25 → SUATTDRO 18:52
PROVIDERS: ADMIT Internal Medicine; ATTEND Internal Medicine